=== PATIENT | male | born 1965 | race Two or more races ===

== ENCOUNTER 2016-08-06 23:03 | Inpatient (IN) | payer OTHER ==
[~2016-08-06] VITALS: Ht 188 cm; Wt 74.4 kg
[2016-08-07] MEDS ORDERED: ONDANSETRON HCL/PF 4 MG/2 ML VIAL IVP ONE (00:30)
[2016-08-07] MEDS ORDERED: IV NS 0.9% 1,000 ML BAG IV ONE (00:30)
[2016-08-07] MEDS ORDERED: PANTOPRAZOLE 40 MG VIAL IV ONE (00:30)
[2016-08-07] MEDS ORDERED: HYDROMORPHONE INJ 2 MG/ML DISP.SYRIN IV ONE (00:30)
[2016-08-07] MEDS ORDERED: IV SET PRIMARY 1 EA INFUS.SET MC ONE (00:31)
[2016-08-07] MEDS ORDERED: PANTOPRAZOLE 40 MG VIAL ONE (00:31)
[2016-08-07] MEDS ORDERED: IV NS 0.9% 1,000 ML ONE ×2 (00:31→03:26)
[2016-08-07] MEDS ORDERED: ONDANSETRON HCL/PF 4 MG/2 ML VIAL ONE (00:31)
[2016-08-07] MEDS ORDERED: HYDROMORPHONE 1 MG/1 ML DISP.SYRIN ONE (00:31)
[2016-08-07 01:18] LABS: BASOPHILS # (AUTO) 0.1 /CMM (0.0-0.2); DIFF TOTAL % 100 %; EOSINOPHILS # (AUTO) 0.1 /CMM (0.0-0.7); EOSINOPHILS % (AUTO) 1.9 % (0.0-6.0); HEMATOCRIT 43 % (39-51); HEMOGLOBIN 14.9 g/dL (13.5-17.5); LYMPHOCYTES # (AUTO) 1.9 /CMM (0.8-4.8); LYMPHOCYTES % (AUTO) 37.1 % (20.0-44.0); MEAN CORPUSCULAR HEMOGLOBIN 32 PG (26.0-33.0); MEAN CORPUSCULAR HGB CONC 35 g/dl (31.0-36.0); MEAN CORPUSCULAR VOLUME 92 fL (80-96); MONOCYTES # (AUTO) 0.3 /CMM (0.1-1.30); MONOCYTES % (AUTO) 6.4 % (2.0-12.0); NEUTROPHILS # (AUTO) 2.8 /CMM (1.8-8.9); NEUTROPHILS % (AUTO) 52.6 % (43.0-81.0); PLATELET COUNT (AUTO) 102 /CMM (150-450); RED BLOOD CELL COUNT(AUTO) 4.62 MIL/uL (4.5-6.0); WHITE BLOOD COUNT (AUTO) 5.3 K/uL (4.3-11.0)
[2016-08-07 01:32] LABS: INR 0.93 (0.87-1.13)
[2016-08-07 01:35] LABS: TROPONIN I < 0.017 ng/mL (0.00-0.056)
[2016-08-07 01:39] LABS: ANION GAP 15 (5-14); CARBON DIOXIDE 25 mmol/L (21-32); CHLORIDE 97 mmol/L (98-107); CREATININE 1.5 mg/dL (0.6-1.3); GFR 49 mL/min (>60); GLUCOSE 127 mg/dL (74-106); POTASSIUM 4.3 mmol/L (3.5-5.1); SODIUM SERUM 133 mmol/L (136-145); UREA NITROGEN, BLOOD 18 mg/dL (7-18)
[2016-08-07 01:43] LABS: ALANINE AMINOTRANSFERASE 47 U/L (12-78); ALBUMIN 3.4 g/dL (3.4-5.0); ASPARTATE AMINOTRANSFERASE 49 U/L (15-37); BILIRUBIN,DIRECT 0.1 mg/dL (0.0-0.2); BILIRUBIN,TOTAL 0.3 mg/dL (0.2-1.0); INDIRECT BILIRUBIN 0.2 mg/dL (0.0-1.1); TOTAL PROTEIN, SERUM 8.3 g/dL (6.4-8.2)
[2016-08-07] MEDS ORDERED: IV SET PRIMARY PUMP SET 1 EA INFUS.SET MC ONE (03:26)
[2016-08-07 03:30] VITALS: BP 129/81
[2016-08-07] MEDS ORDERED: MAGNESIUM HYDROXIDE 30 ML UDC PO PRN (03:30)
[2016-08-07] MEDS ORDERED: ZOLPIDEM TARTRATE 5 MG TABLET PO PRN (03:30)
[2016-08-07] MEDS ORDERED: ACETAMINOPHEN 325 MG TABLET PO PRN (03:30)
[2016-08-07] MEDS ORDERED: MAG HYDROX/AL HYDROX/SIMETH 30 ML UDC PO PRN (03:30)
[2016-08-07] MEDS ORDERED: Z GUARD REMEDY 2 OZ OINT TP PRN (03:30)
[2016-08-07] MEDS ORDERED: HYDROCODONE/APAP 5/325MG 1 EACH TABLET PO PRN (03:30)
[2016-08-07] MEDS: IV NS 0.9% 1,000 ML IV PRN ×2 (03:36→21:13)
[2016-08-07 07:58] LABS: DIFF TOTAL % 100 %; EOSINOPHILS # (AUTO) 0.2 /CMM (0.0-0.7); EOSINOPHILS % (AUTO) 4.4 % (0.0-6.0); HEMATOCRIT 40 % (39-51); LYMPHOCYTES # (AUTO) 1.3 /CMM (0.8-4.8); LYMPHOCYTES % (AUTO) 35.9 % (20.0-44.0); MEAN CORPUSCULAR HEMOGLOBIN 32 PG (26.0-33.0); MEAN CORPUSCULAR HGB CONC 35 g/dl (31.0-36.0); MEAN CORPUSCULAR VOLUME 91 fL (80-96); MONOCYTES # (AUTO) 0.3 /CMM (0.1-1.30); MONOCYTES % (AUTO) 9.5 % (2.0-12.0); NEUTROPHILS # (AUTO) 1.8 /CMM (1.8-8.9); NEUTROPHILS % (AUTO) 49.2 % (43.0-81.0); PLATELET COUNT (AUTO) 77 /CMM (150-450); RED BLOOD CELL COUNT(AUTO) 4.32 MIL/uL (4.5-6.0); WHITE BLOOD COUNT (AUTO) 3.7 K/uL (4.3-11.0)
[2016-08-07 08:00] VITALS: BP 116/79
[2016-08-07 08:17] LABS: CALCIUM, SERUM 7.6 mg/dL (8.5-10.1); CREATININE 1.4 mg/dL (0.6-1.3); POTASSIUM 4.6 mmol/L (3.5-5.1)
[2016-08-07] MEDS: PANTOPRAZOLE 40 MG VIAL IV SCH (10:23)
[2016-08-07] MEDS: ONDANSETRON HCL/PF 4 MG/2 ML VIAL IVP PRN ×2 (10:30→17:12)
[2016-08-07] MEDS: MORPHINE SULFATE INJ 2 MG/ML DISP.SYRIN IV PRN ×3 (10:30→21:11)
[2016-08-07 12:00] VITALS: BP 142/96
[2016-08-07 13:49] LABS: BAND % (MANUAL) 3 % (0.0-5.0); EOSINOPHILS % (MANUAL) 2 % (0-4); LYMPHOCYTES % (MANUAL) 41 % (16-48)
[2016-08-07 13:50] LABS: PLATELET ESTIMATE DECREASED; RBC MORPHOLOGY COMMENT NORMAL RBC MORPH
[2016-08-07 16:00] VITALS: BP 142/84
[2016-08-07] MEDS ORDERED: PEG 3350/NA SULF,BICARB,CL/KCL 4,000 ML BOTTLE PO ONE (18:00)
[2016-08-07 20:00] VITALS: BP 177/97
[2016-08-07 22:00] VITALS: BP 170/101
[2016-08-08] VITALS (7 sets, daily range): BP systolic 124–163; BP diastolic 75–98
[2016-08-08] MEDS: PANTOPRAZOLE 40 MG VIAL IV SCH (08:52)
[2016-08-08 09:31] LABS: BASOPHILS % (AUTO) 0.7 % (0.0-2.0); DIFF TOTAL % 100 %; EOSINOPHILS # (AUTO) 0.1 /CMM (0.0-0.7); EOSINOPHILS % (AUTO) 3.7 % (0.0-6.0); HEMATOCRIT 39 % (39-51); HEMOGLOBIN 13.7 g/dL (13.5-17.5); LYMPHOCYTES # (AUTO) 0.8 /CMM (0.8-4.8); LYMPHOCYTES % (AUTO) 27.6 % (20.0-44.0); MEAN CORPUSCULAR HEMOGLOBIN 32 PG (26.0-33.0); MEAN CORPUSCULAR HGB CONC 36 g/dl (31.0-36.0); MEAN CORPUSCULAR VOLUME 91 fL (80-96); MONOCYTES # (AUTO) 0.2 /CMM (0.1-1.30); MONOCYTES % (AUTO) 6.4 % (2.0-12.0); NEUTROPHILS # (AUTO) 1.8 /CMM (1.8-8.9); NEUTROPHILS % (AUTO) 61.6 % (43.0-81.0); RED BLOOD CELL COUNT(AUTO) 4.25 MIL/uL (4.5-6.0)
[2016-08-08 09:51] LABS: PLATELET COUNT (AUTO) 39 /CMM (150-450)
[2016-08-08 10:03] LABS: CREATININE 1.3 mg/dL (0.6-1.3); PHOSPHORUS 2.9 mg/dL (2.5-4.9); POTASSIUM 3.9 mmol/L (3.5-5.1)
[2016-08-08 11:02] LABS: BAND % (MANUAL) 2 % (0.0-5.0); EOSINOPHILS % (MANUAL) 4 % (0-4); LYMPHOCYTES % (MANUAL) 25 % (16-48); PLATELET ESTIMATE DECREASED
[2016-08-08] MEDS ORDERED: SECONDARY IV SET 1 EA INFUS.SET MC ONE (13:35)
[2016-08-08] MEDS: Magnesium 1GM/D5W 100ML PREMIX 100 ML IV SCH ×4 (13:40→17:05)
[2016-08-08] MEDS: IV NS 0.9% 1,000 ML IV PRN (22:57)
[2016-08-09] VITALS (7 sets, daily range): BP systolic 111–139; BP diastolic 82–112
[2016-08-09 07:00] LABS: DIFF TOTAL % 100 %; EOSINOPHILS # (AUTO) 0.1 /CMM (0.0-0.7); EOSINOPHILS % (AUTO) 1.4 % (0.0-6.0); HEMATOCRIT 38 % (39-51); HEMOGLOBIN 13.3 g/dL (13.5-17.5); LYMPHOCYTES # (AUTO) 0.9 /CMM (0.8-4.8); LYMPHOCYTES % (AUTO) 15.1 % (20.0-44.0); MEAN CORPUSCULAR HEMOGLOBIN 32 PG (26.0-33.0); MEAN CORPUSCULAR HGB CONC 35 g/dl (31.0-36.0); MEAN CORPUSCULAR VOLUME 92 fL (80-96); MONOCYTES # (AUTO) 0.2 /CMM (0.1-1.30); MONOCYTES % (AUTO) 3.9 % (2.0-12.0); NEUTROPHILS # (AUTO) 4.8 /CMM (1.8-8.9); NEUTROPHILS % (AUTO) 79.6 % (43.0-81.0); RED BLOOD CELL COUNT(AUTO) 4.15 MIL/uL (4.5-6.0); WHITE BLOOD COUNT (AUTO) 6.1 K/uL (4.3-11.0)
[2016-08-09 07:41] LABS: PLATELET COUNT (AUTO) 22 /CMM (150-450)
[2016-08-09 07:42] LABS: CALCIUM, SERUM 8.1 mg/dL (8.5-10.1); CREATININE 1.3 mg/dL (0.6-1.3); PHOSPHORUS 2.4 mg/dL (2.5-4.9); POTASSIUM 3.9 mmol/L (3.5-5.1)
[2016-08-09 08:30] LABS: BAND % (MANUAL) 4 % (0.0-5.0); EOSINOPHILS % (MANUAL) 2 % (0-4); LYMPHOCYTES % (MANUAL) 19 % (16-48); PLATELET ESTIMATE DECREASED
[2016-08-09] MEDS: PANTOPRAZOLE 40 MG VIAL IV SCH (09:11)
[2016-08-09] MEDS: Magnesium 1GM/D5W 100ML PREMIX 100 ML IV SCH ×4 (11:03→14:23)
[2016-08-09 14:25] LABS: INR 0.97 (0.87-1.13); PROTHROMBIN TIME 10.5 SECS (9.5-12.7)
[2016-08-09] MEDS ORDERED: Sodium Phosphate 15 MMOL in IV D5W 250 ML IV ONE (15:00)
[2016-08-09] MEDS ORDERED: SECONDARY IV SET 1 EA INFUS.SET MC ONE (15:06)
[2016-08-09] MEDS ORDERED: PLATELET IV SET 1 EA INFUS.SET MC ONE (15:58)
[2016-08-09] MEDS ORDERED: IV NS 0.9% 1,000 ML ONE (22:37)
[2016-08-09] MEDS: IV NS 0.9% 1,000 ML IV PRN (22:41)
[2016-08-10 08:00] VITALS: BP 125/81
[2016-08-10 08:26] LABS: BASOPHILS % (AUTO) 0.7 % (0.0-2.0); DIFF TOTAL % 100 %; EOSINOPHILS # (AUTO) 0.2 /CMM (0.0-0.7); EOSINOPHILS % (AUTO) 4.9 % (0.0-6.0); HEMATOCRIT 36 % (39-51); HEMOGLOBIN 12.5 g/dL (13.5-17.5); LYMPHOCYTES % (AUTO) 31.6 % (20.0-44.0); MEAN CORPUSCULAR HEMOGLOBIN 32 PG (26.0-33.0); MEAN CORPUSCULAR HGB CONC 35 g/dl (31.0-36.0); MEAN CORPUSCULAR VOLUME 92 fL (80-96); MONOCYTES # (AUTO) 0.2 /CMM (0.1-1.30); MONOCYTES % (AUTO) 6.6 % (2.0-12.0); NEUTROPHILS # (AUTO) 1.8 /CMM (1.8-8.9); NEUTROPHILS % (AUTO) 56.2 % (43.0-81.0); RED BLOOD CELL COUNT(AUTO) 3.87 MIL/uL (4.5-6.0); WHITE BLOOD COUNT (AUTO) 3.2 K/uL (4.3-11.0)
[2016-08-10 08:49] LABS: PLATELET COUNT (AUTO) 24 /CMM (150-450)
[2016-08-10] MEDS: PANTOPRAZOLE 40 MG VIAL IV SCH (09:00)
[2016-08-10 09:05] LABS: CREATININE 1.2 mg/dL (0.6-1.3); PHOSPHORUS 3.2 mg/dL (2.5-4.9); POTASSIUM 3.8 mmol/L (3.5-5.1)
[2016-08-10 09:30] LABS: EOSINOPHILS % (MANUAL) 3 % (0-4); LYMPHOCYTES % (MANUAL) 36 % (16-48); PLATELET ESTIMATE DECREASED
[2016-08-10] MEDS ORDERED: Magnesium 1GM/D5W 100ML PREMIX 100 ML IV SCH (12:00)
[2016-08-10] MEDS ORDERED: MAGN400T26 PO (12:06)
[2016-08-10] MEDS ORDERED: LACT10SO PO (12:06)
[2016-08-10] MEDS ORDERED: PANT40TA4 PO (12:06)
[2016-08-10] MEDS ORDERED: SPIR25TA4 PO (12:06)
== END 2016-08-10 13:55 | disposition home or self-care (01) | DRG 245 ==
LOC: ER 23:06 → TELE 08-07 02:35 → MED 08-07 13:17
PROVIDERS: ADMIT Family Medicine; ATTEND Internal Medicine
PROC: 0DBN8ZZ Excision of Sigmoid Colon, Via Natural or Artificial Opening Endoscopic (ICD-10-PCS; principal; 2016-08-08 12:10)
PROC: 0DBM8ZZ Excision of Descending Colon, Via Natural or Artificial Opening Endoscopic (ICD-10-PCS; principal; 2016-08-08 12:10)
PROC: 0DBK8ZZ Excision of Ascending Colon, Via Natural or Artificial Opening Endoscopic (ICD-10-PCS; principal; 2016-08-08 12:10)
PROC: 30233Q1 Transfusion of Nonautologous White Cells into Peripheral Vein, Percutaneous Approach (ICD-10-PCS; 2016-08-09)
PROC: 05H533Z Insertion of Infusion Device into Right Subclavian Vein, Percutaneous Approach (ICD-10-PCS; 2016-08-09)
DX: K51.911 Ulcerative colitis, unspecified with rectal bleeding (principal); K85.20 Alcohol induced acute pancreatitis without necrosis or infection; D61.818 Other pancytopenia; K57.31 Diverticulosis of large intestine without perforation or abscess with bleeding; D69.6 Thrombocytopenia, unspecified; D62 Acute posthemorrhagic anemia; K86.0 Alcohol-induced chronic pancreatitis; K70.30 Alcoholic cirrhosis of liver without ascites; E87.8 Other disorders of electrolyte and fluid balance, not elsewhere classified; K63.5 Polyp of colon; F10.21 Alcohol dependence, in remission; K76.0 Fatty (change of) liver, not elsewhere classified; K64.8 Other hemorrhoids; D75.9 Disease of blood and blood-forming organs, unspecified; D12.2 Benign neoplasm of ascending colon; D12.4 Benign neoplasm of descending colon; D12.5 Benign neoplasm of sigmoid colon
CPT/HCPCS: 36415; 71010-TC; 76705-TC; 80048-TC; 80076-TC; 82272-TC; 83690-TC; 83735-TC; 84100-TC; 84484-TC; 85025-TC; 85396; 85730-TC; 86850-TC; 87081-TC; 88305-TC; A4606; A9563; C9113; G6040-TC; J1170; J2270; J2405; J3475; J7030; J7060; P9016-BL; P9034-BL; Z7610

== ENCOUNTER 2017-09-10 20:44 | Emergency (ER) | payer OTHER ==
[~2017-09-10] VITALS: Ht 188 cm; Wt 76.2 kg
[~2017-09-10 20:44] MED LIST: LACT10SO PO; MAGN400T26 PO; PANT40TA4 PO; SPIR25TA4 PO
[2017-09-10] MEDS ORDERED: ONDANSETRON HCL/PF 4 MG/2 ML VIAL IVP ONE (21:00)
[2017-09-10] MEDS ORDERED: IV NS 0.9% 1,000 ML BAG IV ONE ×2 (21:00→22:00)
--- NOTE | 2017-09-10 21:00 | NUR ---
TO BED 5 A 52 YO MALE PATIENT BIBRA 78 FROM HOME, PER RA STATES " PT WAS IN ROOM DRINKING ALCOHOL AND NOT EATING X 3 DAYS PER FAMILY" FIELD BS 60'S HX CHRONC ETOH, HX HIV. PATIENT IS AAOX3, VSS, BREATHING EVEN AND UNLABORED. SKIN WARM AND DRY. SAFETY AND COMFORT MEASURES RENDERED.
--- NOTE | 2017-09-10 21:05 | NUR ---
STARTED A SALINE LOCK ON THE LAC G18, BLOOD DRAWN AND SENT TO LAB.
[2017-09-10 21:16] LABS: HEMATOCRIT 49 % (39-51); HEMOGLOBIN 16.9 g/dL (13.5-17.5); RED BLOOD CELL COUNT(AUTO) 5.04 MIL/uL (4.5-6.0); WHITE BLOOD COUNT (AUTO) 7.9 K/uL (4.3-11.0)
[2017-09-10 21:17] LABS: BASOPHILS % (AUTO) 0.6 % (0.0-2.0); EOSINOPHILS # (AUTO) 0.2 /CMM (0.0-0.7); EOSINOPHILS % (AUTO) 2.1 % (0.0-6.0); LYMPHOCYTES # (AUTO) 1.3 /CMM (0.8-4.8); MEAN CORPUSCULAR HEMOGLOBIN 34 PG (26.0-33.0); MEAN CORPUSCULAR HGB CONC 35 g/dl (31.0-36.0); MEAN CORPUSCULAR VOLUME 97 fL (80-96); MONOCYTES # (AUTO) 0.5 /CMM (0.1-1.30); NEUTROPHILS # (AUTO) 5.9 /CMM (1.8-8.9); NEUTROPHILS % (AUTO) 74.3 % (43.0-81.0); PLATELET COUNT (AUTO) 292 /CMM (150-450); RDW COEFFICIENT OF VARIATION 11.4 (11.5-15.0)
[2017-09-10 21:26] LABS: CALCIUM, SERUM 8.6 mg/dL (8.5-10.1); CREATININE 1.7 mg/dL (0.6-1.3); POTASSIUM 4.7 mmol/L (3.5-5.1)
[2017-09-10] MEDS ORDERED: LORAZEPAM 1 MG TABLET PO ONE (21:30)
[2017-09-10 21:32] LABS: ALBUMIN 3.7 g/dL (3.4-5.0); BILIRUBIN,DIRECT 0.1 mg/dL (0.0-0.2); BILIRUBIN,TOTAL 0.3 mg/dL (0.2-1.0); TOTAL PROTEIN, SERUM 8.3 g/dL (6.4-8.2)
[2017-09-10] MEDS ORDERED: ONDANSETRON HCL/PF 4 MG/2 ML VIAL ONE (21:32)
[2017-09-10] MEDS ORDERED: LORAZEPAM 1 MG TABLET ONE (21:32)
--- NOTE | 2017-09-10 21:39 | NUR ---
MEDICATED PATIENT ORDERED BY DR RIVAS.
--- NOTE | 2017-09-10 22:50 | NUR ---
PATIENT IS SLEEPING COMFORTABLY IN BED AT THIS TIME. VSS. NAD NOTED.
--- NOTE | 2017-09-10 23:49 | NUR ---
IV removed. Catheter intact and site benign. Pressure and 4x4 applied to site. No bleeding noted. Patient discharged to home in stable condition. Written and verbal after care instructions given. Patient verbalizes understanding of instruction. Patient is ambulatory with steady gait, instructed not to drive and patient said he is going to take uber. vss. nad noted. No further complaints.
[2017-09-11 00:07] VITALS: BP 145/87
[2017-09-14] MEDS ORDERED: LEVE250T2 PO (11:12)
[2017-09-14] MEDS ORDERED: SERT25TA5 PO (11:12)
== END 2017-09-11 00:08 | disposition home or self-care (01) ==
LOC: ER 20:48
DX: F10.10 Alcohol abuse, uncomplicated (principal); E86.0 Dehydration; N28.9 Disorder of kidney and ureter, unspecified
CPT/HCPCS: 36415; 80048; 80076; 85025; 96361; 96374; 99284; A4606; G0480; J2405 ×2; J7030 ×2; Z7610

== ENCOUNTER 2017-09-11 12:40 | Inpatient (IN) | payer OTHER ==
[~2017-09-11] VITALS: Ht 188 cm; Wt 74.9 kg
--- NOTE | 2017-09-11 13:25 | NUR ---
BIBFRIEND FROM HOME DT WITNESSED SEIZURE THIS MORNING AND VERBALIZEING WANTING TO KILL HIMSELF. PATIENT DENIES SPECIFIC PLAN. PT IN NO DISTRESS. AFEBRILE. VSS. AAO4. SEIZURE AND SUICIDAL PREC OBSERVED
--- NOTE | 2017-09-11 13:26 | NUR ---
MD MCNAIR AT
[2017-09-11] MEDS ORDERED: IV NS 0.9% 1,000 ML BAG IV ONE (13:30)
[2017-09-11] MEDS ORDERED: LORAZEPAM INJ 2 MG/ML VIAL IVP ONE (13:30)
[2017-09-11] MEDS ORDERED: LORAZEPAM INJ 2 MG/ML VIAL ONE (13:35)
[2017-09-11] MEDS ORDERED: FOLIC ACID 1 MG TABLET ONE (13:39)
[2017-09-11] MEDS ORDERED: THIAMINE HCL 100 MG TABLET ONE (13:39)
[2017-09-11 13:46] LABS: BASOPHILS % (AUTO) 0.7 % (0.0-2.0); EOSINOPHILS # (AUTO) 0.1 /CMM (0.0-0.7); HEMATOCRIT 44 % (39-51); HEMOGLOBIN 15.3 g/dL (13.5-17.5); LYMPHOCYTES # (AUTO) 1.1 /CMM (0.8-4.8); MEAN CORPUSCULAR HEMOGLOBIN 33 PG (26.0-33.0); MEAN CORPUSCULAR HGB CONC 35 g/dl (31.0-36.0); MEAN CORPUSCULAR VOLUME 96 fL (80-96); MONOCYTES # (AUTO) 0.3 /CMM (0.1-1.30); MONOCYTES % (AUTO) 4.7 % (2.0-12.0); NEUTROPHILS # (AUTO) 5.1 /CMM (1.8-8.9); NEUTROPHILS % (AUTO) 76.6 % (43.0-81.0); PLATELET COUNT (AUTO) 259 /CMM (150-450); RDW COEFFICIENT OF VARIATION 11.6 (11.5-15.0); RED BLOOD CELL COUNT(AUTO) 4.59 MIL/uL (4.5-6.0); WHITE BLOOD COUNT (AUTO) 6.6 K/uL (4.3-11.0)
[2017-09-11 13:54] LABS: CALCIUM, SERUM 8.4 mg/dL (8.5-10.1); CREATININE 1.5 mg/dL (0.6-1.3); POTASSIUM 4.1 mmol/L (3.5-5.1)
[2017-09-11 13:59] LABS: ALBUMIN 3.4 g/dL (3.4-5.0); BILIRUBIN,DIRECT 0.1 mg/dL (0.0-0.2); BILIRUBIN,TOTAL 0.3 mg/dL (0.2-1.0); TOTAL PROTEIN, SERUM 7.6 g/dL (6.4-8.2)
[2017-09-11] MEDS ORDERED: FOLIC ACID 1 MG TABLET PO ONE (14:00)
[2017-09-11] MEDS ORDERED: THIAMINE HCL 100 MG TABLET PO ONE (14:00)
--- NOTE | 2017-09-11 15:40 | NUR ---
CALLED NURSING SUP. FOR TELE BED
--- NOTE | 2017-09-11 15:45 | NUR ---
[facility] PAGED, BEVERLY BARCENAS EMOTIONAL DISABILITIES TEACHER
--- NOTE | 2017-09-11 16:17 | NUR ---
[place] AT BEDSIDE
--- NOTE | 2017-09-11 16:24 | NUR ---
TELE [id number]
--- NOTE | 2017-09-11 16:30 | NUR ---
PT TRANSPORTED TO [facility]
[2017-09-11 17:00] VITALS: BP 154/100
[2017-09-11] MEDS ORDERED: ONDANSETRON HCL/PF 4 MG/2 ML VIAL IVP PRN (17:30)
[2017-09-11] MEDS ORDERED: ACETAMINOPHEN 325 MG TABLET PO PRN (17:30)
[2017-09-11] MEDS ORDERED: MAG HYDROX/AL HYDROX/SIMETH 30 ML UDC PO PRN (17:30)
[2017-09-11] MEDS ORDERED: MAGNESIUM HYDROXIDE 30 ML UDC PO PRN (17:30)
[2017-09-11] MEDS ORDERED: Z GUARD REMEDY 2 OZ OINT TP PRN (17:30)
--- NOTE | 2017-09-11 19:30 | NUR ---
RN NOTES RECEIVED PATIENT IN BED ASLEEP, EASILY AROUSABLE. AO X 3, ABLE TO MAKE NEEDS KNOWN. NO ACUTE DISTRESS NOTED. DENIES ANY PAIN AT THIS TIME. TELE READING SINUS HR 99. IV SITE PATENT, INTACT; FLUSHED. SAFETY REMINDERS GIVEN. 1:1 SITTER AT BEDSIDE. SEIZURE PRECAUTIONS IN PLACE. ON LOW BED WITH BILATERAL UPPER SIDE RAILS UP. CALL [place] WITHIN EASY REACH. WILL CONTINUE TO MONITOR.
[2017-09-11 20:00] VITALS: BP 130/69
[2017-09-11] MEDS: IV NS 0.9% 1,000 ML IV PRN (21:30)
[2017-09-11] MEDS: LORAZEPAM INJ 2 MG/ML VIAL IV PRN (22:44)
[2017-09-12] VITALS: BP 145/84
[2017-09-12 04:00] VITALS: BP 157/98
[2017-09-12] MEDS: HYDROCODONE/APAP 5/325MG 1 EACH TABLET PO PRN (05:32)
--- NOTE | 2017-09-12 06:23 | NUR ---
RN NOTES PATIENT ASLEEP, EASILY AROUSABLE. RESPIRATIONS EVEN. NO SIGNS OF PAIN NOTED. NORCO GIVEN FOR BACK PAIN; EFFECTIVE. IVF ONGOING ORDERED. NEEDS ATTENDED. SAFETY PRECAUTIONS AND COMFORT MEASURES IN PLACE. WILL GIVE REPORT TO DAY SHIFT FOR CONTINUITY OF CARE.
[2017-09-12 06:24] LABS: BASOPHILS # (AUTO) 0.1 /CMM (0.0-0.2); EOSINOPHILS # (AUTO) 0.2 /CMM (0.0-0.7); EOSINOPHILS % (AUTO) 3.9 % (0.0-6.0); HEMATOCRIT 38 % (39-51); HEMOGLOBIN 13.4 g/dL (13.5-17.5); LYMPHOCYTES # (AUTO) 1.3 /CMM (0.8-4.8); LYMPHOCYTES % (AUTO) 24.5 % (20.0-44.0); MEAN CORPUSCULAR HEMOGLOBIN 35 PG (26.0-33.0); MEAN CORPUSCULAR HGB CONC 36 g/dl (31.0-36.0); MEAN CORPUSCULAR VOLUME 97 fL (80-96); MONOCYTES # (AUTO) 0.5 /CMM (0.1-1.30); MONOCYTES % (AUTO) 8.7 % (2.0-12.0); NEUTROPHILS # (AUTO) 3.4 /CMM (1.8-8.9); NEUTROPHILS % (AUTO) 61.9 % (43.0-81.0); PLATELET COUNT (AUTO) 193 /CMM (150-450); RDW COEFFICIENT OF VARIATION 12.3 (11.5-15.0); RED BLOOD CELL COUNT(AUTO) 3.89 MIL/uL (4.5-6.0); WHITE BLOOD COUNT (AUTO) 5.4 K/uL (4.3-11.0)
[2017-09-12 06:31] LABS: ALBUMIN 3.1 g/dL (3.4-5.0); BILIRUBIN,DIRECT 0.2 mg/dL (0.0-0.2); BILIRUBIN,TOTAL 0.8 mg/dL (0.2-1.0); CALCIUM, SERUM 8.9 mg/dL (8.5-10.1); CREATININE 1.4 mg/dL (0.6-1.3); MAGNESIUM 1.6 mg/dL (1.8-2.4); PHOSPHORUS 3.1 mg/dL (2.5-4.9); POTASSIUM 4.2 mmol/L (3.5-5.1); TOTAL PROTEIN, SERUM 6.8 g/dL (6.4-8.2)
[2017-09-12 06:52] LABS: THYROID STIMULATING HORMONE 1.767 uIU/mL (0.358-3.74)
--- NOTE | 2017-09-12 07:30 | NUR ---
COUNTERINTELLIGENCE/HUMINT SPECIALIST NOTES PATIENT RECEIVED AWAKE, ALERT, VERBALLY RESPONSIVE AND RESPONDS TO VERBAL AND TACTILE STIMULI. PATIENT BREATHING EVEN AND UNLABORED. NO SOB OR ACUTE DISTRESS NOTED AT THIS TIME. PATIENT AFEBRILE, SKIN DRY AND WARM TO TOUCH. BED LOCKED IN LOW POSITION, BILATERAL UPPER SIDE RAILS UP AND LOCKED. WILL CONTINUE TO MONITOR
[2017-09-12] MEDS: FOLIC ACID 1 MG TABLET PO SCH (08:38)
[2017-09-12] MEDS: PANTOPRAZOLE 40 MG TABLET.DR PO SCH (08:38)
[2017-09-12] MEDS: THIAMINE HCL 100 MG TABLET PO SCH (08:38)
[2017-09-12 10:00] VITALS: BP 159/92
[2017-09-12] MEDS ORDERED: LEVETIRACETAM (500MG) 1,000 MG in IV NS 0.9% 100 ML IV STA (10:00)
--- NOTE | 2017-09-12 10:36 | NUR ---
Social service consult requested by DIANA Santos for alcohol rehab referrals. Pt. is a 52 year old male who was admitted to [facility] for seizure. SW met with pt. bedside. Pt. is alert and oriented x 4. Pt. has a sitter bedside for seizure and suicidal precautions. Pt. was cooperative with SW during the assessment but evasive regarding his alcohol intake and history. Pt. states he resides with roommates in [place]. [place] [id number] [address]. Pt's emergency contact is Wesly Alegria . Pt. works at a [employer]. Pt. is independent with his ADL's. Pt. states he drinks about two glasses of vodka daily. Pt. has been to Alcoholics Anonymous meetings in the past but not currently. SW offered pt. referrals to alcohol treatment programs and list of AA meetings, however pt. declined. Pt. appears to not be forthcoming about his alcohol use. Pt. denies suicidal/ homicidal ideations and visual/auditory hallucinations at this time. Pt. denies any psychiatric diagnosis or hospitalizations. ABDIRIZAK informed Med Surg3 PRANEETH Erickson regarding having pt. be seen by a psychiatrist. No other social service needs are required at this time. SW is available, if needed.
--- NOTE | 2017-09-12 12:00 | NUR ---
MS RN NOTES PATIENT SEEN AND EXAMINED BY BEVERLY BARCENAS. ORDERS NOTED AND CARRIED OUT
[2017-09-12] MEDS: IV NS 0.9% 1,000 ML IV PRN (12:21)
[2017-09-12] MEDS: Magnesium 1GM/D5W 100ML PREMIX 100 ML IV SCH ×2 (12:38→13:46)
[2017-09-12 16:00] VITALS: BP 152/90
--- NOTE | 2017-09-12 16:44 | NUR ---
MS RN NOTES PATIENT VERBALIZED HE IS A DAILY SMOKER AND ASKED IF HE CAN HAVE SOME ALTERNATIVE TO SMOKING FOR THE MEAN TIME. NO SHAKING OR TREMORS NOTED, NO DIAPHORESIS NOTED. PATIENT REMAINS CALM AND RELAXED. NO CHANGES IN LOC NOTED. PLACED CALL TO BEVERLY BARCENAS NP AND MADE AWARE. OBTAINED NEW ORDER FOR NICOTINE PATCH 14MG TD QD. ORDER NOTED AND CARRIED OUT. PHARMACY MADE AWARE. WILL CONTINUE TO MONITOR
[2017-09-12] MEDS: NICOTINE PATCH (14MG) 14 MG PATCH.TD24 TD SCH (16:48)
[2017-09-12] MEDS: LORAZEPAM INJ 2 MG/ML VIAL IV PRN ×2 (17:42→21:58)
--- NOTE | 2017-09-12 18:45 | NUR ---
MS RN NOTES PATIENT AWAKE, ALERT AND ORIENTED X 4, ABLE TO MAKE NEEDS KNOWN AND FOLLOW SIMPLE INSTRUCTIONS. BREATHING EVEN AND UNLABORED. NO SOB OR ACUTE DISTRESS NOTED AT THIS TIME. PATIENT DENIES ANY PAIN OR DISCOMFORT. PATIENT AFEBRILE, SKIN DRY AND WARM TO TOUCH. IV SITE ON LEFT AC IN PLACE, INTACT AND PATENT, NO SWELLING OR BLEEDING NOTED AT THIS TIME. NO VERBALIZATION OF SUICIDAL IDEATION DURING THIS SHIFT. PATIENT REMAINS CALM AND RELAXED. NO CHANGES IN LOC NOTED. WILL CONTINUE TO MONITOR. ALL NURSING NEEDS ATTENDED AND MET. PATIENT KEPT CLEAN, DRY AND COMFORTABLE. PROVIDED WITH CLAM, SAFE, HAZARD-FREE ENVIRONMENT. BED LOCKED AND IN LOW POSITION, BILATERAL UPPER SIDE RAILS UP AND LOCKED. CALL LIGHT WITHIN EASY REACH
--- NOTE | 2017-09-12 19:15 | NUR ---
RN OPENING NOTES PT RESTING IN BED. AWAKE AND ALERT. NO COMPLAINTS OF PAIN, DISTRESS, OR SOB AT THIS TIME. PER DAY SHIFT NURSE PT IS AWAITING PSYCH EVAL FOR SUICIDAL IDEATION PER PT ROOMMATE. PT HAS A 1:1 SITTER. PT HAS A LEFT AC #20 RUNNING 75ML/HR. SAFETY PRECAUTIONS IN PLACE. BED IN LOW, LOCKED POSITION, [id number] UP, CALL LIGHT WITHIN REACH. WILL CONTINUE TO MONITOR.
[2017-09-12 20:00] VITALS: BP 154/101
--- NOTE | 2017-09-12 20:00 | NUR ---
RN NOTES PT REQUESTED ATIVAN 1MG. EXPLAINED TO PT THAT THE DR ORDERED ATIVAN Q4HR. NEXT AVAILABLE DOSE WOULD BE AT 2145. PT UNDERSTOOD.
[2017-09-12] MEDS: LEVETIRACETAM (250 MG) 250 MG TABLET PO SCH (20:08)
--- NOTE | 2017-09-12 21:58 | NUR ---
RN NOTES ADMINISTERED PRN ATIVAN 1MG PER PT REQUEST. PT COMPLAINING OF ANXIETY.
[2017-09-13] MEDS: HYDROCODONE/APAP 5/325MG 1 EACH TABLET PO PRN ×3 (00:16→18:44)
--- NOTE | 2017-09-13 02:30 | NUR ---
RN NOTES PT REQUESTED ATIVAN FOR ANXIETY. WILL ADMINISTER PRN ATIVAN 1MG PER ORDER. WILL CONTINUE TO MONITOR.
[2017-09-13] MEDS: LORAZEPAM INJ 2 MG/ML VIAL IV PRN ×4 (02:34→23:48)
[2017-09-13] MEDS: IV NS 0.9% 1,000 ML IV PRN (05:33)
--- NOTE | 2017-09-13 06:45 | NUR ---
RN CLOSING NOTES PT SLEEPING IN BED. AWAKENS EASILY. 1:1 SITTER AT BEDSIDE. NO SIGNIFICANT CHANGES OVERNIGHT. NO COMPLAINTS OF PAIN, DISTRESS, OR SOB AT THIS TIME. NO SEIZURES NOTED ON SHIFT. PT HAS A LEFT AC #20 RUNNING 75ML/HR. SAFETY PRECAUTIONS IN PLACE. BED IN LOW, LOCKED POSITION, [id number] UP, CALL LIGHT WITHIN REACH. WILL ENDORSE TO DAY SHIFT NURSE FOR CONTINUITY OF CARE.
[2017-09-13 06:55] LABS: CALCIUM, SERUM 8.4 mg/dL (8.5-10.1); CREATININE 1.4 mg/dL (0.6-1.3); MAGNESIUM 1.7 mg/dL (1.8-2.4); POTASSIUM 3.6 mmol/L (3.5-5.1)
--- NOTE | 2017-09-13 07:38 | NUR ---
RN OPENING NOTES RECEIVED PATIENT RESTING IN BED. AWAKE AND ALERT. NO ACUTE DISTRESS, NO SOB NOTED. NO COMPLAINTS OF PAIN OR DISCOMFORT. IV SITE INTACT AND PATENT, FLUIDS INFUSING 75ML/HR. SITTER ON BEDSIDE FOR SAFETY. BED IN LOW, LOCKED POSITION, [id number] UP, CALL LIGHT WITHIN REACH. WILL CONTINUE TO MONITOR ACCORDINGLY.
[2017-09-13] MEDS: PANTOPRAZOLE 40 MG TABLET.DR PO SCH (07:59)
[2017-09-13 08:00] VITALS: BP 141/96
[2017-09-13] MEDS: FOLIC ACID 1 MG TABLET PO SCH (08:01)
[2017-09-13] MEDS: LEVETIRACETAM (250 MG) 250 MG TABLET PO SCH ×2 (08:01→20:55)
[2017-09-13] MEDS: THIAMINE HCL 100 MG TABLET PO SCH (08:01)
[2017-09-13] MEDS: NICOTINE PATCH (14MG) 14 MG PATCH.TD24 TD SCH (08:02)
[2017-09-13] MEDS: Magnesium 1GM/D5W 100ML PREMIX 100 ML IV SCH ×2 (10:37→11:47)
[2017-09-13] MEDS ORDERED: SERTRALINE HCL 25 MG TABLET PO SCH (13:00)
[2017-09-13 16:00] VITALS: BP 124/82
[2017-09-13 16:37] VITALS: BP 124/82
--- NOTE | 2017-09-13 19:25 | NUR ---
RN CLOSING NOTES PATIENT IN BED RESTING. NO ACUTE DISTRESS, NO SOB NOTED. ALL NEEDS ATTENDED AND PROVIDED. KEPT PATIENT SAFE AND COMFORTABLE IN BED. BED IN LOW/LOCKED POSITION, SIDERAILS UP, CALL LIGHT IN REACH. ENDORSED TO NIGHT RN FOR DONTAE.
--- NOTE | 2017-09-13 19:38 | NUR ---
RN INITIAL NOTES RECEIVED PT LAYING IN BED, COMFORTABLY. A/O X4, RESPIRATIONS ARE EVEN AND UNLABORED, NOT IN ANY ACUTE DISTRESS NOTED. C/O PAIN 6/10 TO BACK AND ALREADY RECEIVED PAIN MEDICATION FROM PREVIOUS SHIFT, NOTED TO BE EFFECTIVE PER PT. IV TO LAC INTACT, PATENT. DRESSING KEPT CLEAN AND DRY. SAFETY MEASURES IN PLACE. WILL CONTINUE TO MONITOR THROUGHOUT SHIFT.
[2017-09-13 20:00] VITALS: BP 133/84
[2017-09-14] MEDS: IV NS 0.9% 1,000 ML IV PRN (02:31)
[2017-09-14] MEDS: LORAZEPAM INJ 2 MG/ML VIAL IV PRN (05:15)
--- NOTE | 2017-09-14 06:15 | NUR ---
RN CLOSING NOTES ALL DUE MEDS GIVEN, NEEDS MET AND ANTICIPATED. REMAINS A/OX4, AFEBRILE. RESPIRATIONS ARE EVEN AND UNLABORED, NOT IN ANY ACUTE DISTRESS NOTED. DENIES ANY PAIN, SOB, N/V, CHEST PAIN. NEW PERIPHERAL IV TO RIGHT WRIST G20, TOLERATED PROCEDURE WELL. DRESSING KEPT CLEAN AND DRY. SAFETY MEASURES IN PLACE, BED IS LOCKED AND IN ITS LOWEST POSITION. INSTRUCTED PT TO USE CALL LIGHT WHEN ASSISTANCE IS NEEDED, CALL LIGHT LEFT WITHIN REACH. WILL ENDORSE TO NEXT SHIFT FOR CONTINUITY OF CARE.
[2017-09-14 06:53] LABS: CALCIUM, SERUM 8.7 mg/dL (8.5-10.1); CREATININE 1.1 mg/dL (0.6-1.3); MAGNESIUM 1.5 mg/dL (1.8-2.4); POTASSIUM 3.6 mmol/L (3.5-5.1)
--- NOTE | 2017-09-14 07:36 | NUR ---
MS/RN OPENING NOTE PATIENT IN BED IN STABLE CONDITION. A/O X 3. NO SIGNS OF ACUTE DISTRESS. NO COMPLAIN OF PAIN OR DISCOMFORT. ALL NEEDS ATTENDED TO. CALL LIGHT WITHIN REACH. WILL CONTINUE TO MONITOR TO ENSURE SAFETY.
[2017-09-14] MEDS: PANTOPRAZOLE 40 MG TABLET.DR PO SCH (08:28)
[2017-09-14] MEDS: THIAMINE HCL 100 MG TABLET PO SCH (08:28)
[2017-09-14] MEDS: LEVETIRACETAM (250 MG) 250 MG TABLET PO SCH (08:28)
[2017-09-14] MEDS: NICOTINE PATCH (14MG) 14 MG PATCH.TD24 TD SCH (08:28)
[2017-09-14] MEDS: FOLIC ACID 1 MG TABLET PO SCH (08:28)
[2017-09-14] MEDS ORDERED: LEVE250T2 PO (11:12)
[2017-09-14] MEDS ORDERED: SERT25TA5 PO (11:12)
[2017-09-14] MEDS ORDERED: MAGNESIUM OXIDE 400 MG TABLET PO ONE (12:00)
--- NOTE | 2017-09-14 13:19 | NUR ---
MS/PULMONARY FUNCTION TECHNOLOGIST PATIENT DISCHARGE HOME IN STABLE CONDITION. A/O X 3. NO SIGNS OF ACUTE DISTRESS. NO COMPLAIN OF PAIN OR DISCOMFORT. DISCHARGE INSTRUCTIONS AND EDUCATION PROVIDED. ALSO MADE AWARE TO FOLLOW UP WITH PRIMARY WITHIN A WEEK. VERBALIZED UNDERSTANDING OF TEACHING. ALL NEEDS ATTENDED TO. NAME BAND AND IV LINE REMOVED. LEFT VIA PRIVATE CAR IN STABLE CONDITION ACCOMPANIED BY FRIEND.
== END 2017-09-14 13:00 | disposition home or self-care (01) | DRG 775 ==
LOC: ER 12:42 → TELE 16:44 → MED 09-12 08:57
PROVIDERS: ADMIT Nurse Practitioner Acute Care; ATTEND Nurse Practitioner Acute Care
DX: F10.221 Alcohol dependence with intoxication delirium (principal); N17.0 Acute kidney failure with tubular necrosis; G92 Toxic encephalopathy; E46 Unspecified protein-calorie malnutrition; F33.2 Major depressive disorder, recurrent severe without psychotic features; K74.60 Unspecified cirrhosis of liver; K70.10 Alcoholic hepatitis without ascites; E88.09 Other disorders of plasma-protein metabolism, not elsewhere classified; Y90.6 Blood alcohol level of 120-199 mg/100 ml; F17.210 Nicotine dependence, cigarettes, uncomplicated; E83.42 Hypomagnesemia; R45.851 Suicidal ideations; Z71.6 Tobacco abuse counseling; T51.0X1A Toxic effect of ethanol, accidental (unintentional), initial encounter; G40.509 Epileptic seizures related to external causes, not intractable, without status epilepticus; Z68.21 Body mass index [BMI] 21.0-21.9, adult; F10.239 Alcohol dependence with withdrawal, unspecified
CPT/HCPCS: 36415; 70450-TC; 76700-TC; 80048-TC; 80061-TC; 80076-TC; 80305; 82962-TC; 83735-TC; 84100-TC; 84443-TC; 85025-TC; 87081-TC; 95819-TC; A4606; G0480; J1953; J2060; J3475; J7030; Z7610